=== PATIENT | female | born 1990 | race American Indian/Alaskan Native ===

== ENCOUNTER 2020-02-27 19:22 | Emergency (ER) | payer BC ==
--- NOTE | 2020-02-27 19:34 | Emergency Department Report ---
Blank Doc - Documentation Documentation: 29-year-old female that presents with abscess to the buttock area. This initial assessment/diagnostic orders/clinical plan/treatment(s) is/are subject to change based on patient's health status, clinical progression and re- assessment by fellow clinical providers in the ED. Further treatment and workup at subsequent clinical providers discretion. Patient/guardians urged not to elope from the ED as their condition may be serious if not clinically assessed and managed. Initial orders include: 1- Patient sent to [facility] for further evaluation and treatment
[2020-02-27 19:38] VITALS: BP 147/100
[2020-02-28] MEDS ORDERED: cephALEXin 500 MG CAP PO ONE (02:09)
[2020-02-28] MEDS ORDERED: traMADol 50 MG TAB PO ONE (02:09)
--- NOTE | 2020-02-28 02:24 | Emergency Department Report ---
- General Chief complaint: Skin/Abscess/Foreign Body Stated complaint: SWOLLEN LUMP ON TAILBONE Time Seen by Provider: 02/27/20 19:34 Source: patient Mode of arrival: Ambulatory Limitations: No Limitations - History of Present Illness Initial comments: Patient presents for abscess of buttocks x3 days. States pain with sitting and soreness. Pain rated at 4/10. Pain is exacerbated by again sitting pain is relieved by offloading. There is no fever, chills there is no bowel movement difficulties no abdominal pain. Patient is with current menses however no dysuria frequency or urgency. Patient denies other concerns. - Related Data Previous Rx's Medication Instructions Recorded Last Taken Type Ferrous Sulfate [Feosol 325 MG tab] 325 mg PO BID #120 tablet 09/12/13 Unknown Rx Albuterol Mdi (or & Nicu Only) 2 puff IH QID PRN #1 inhalation 02/22/14 Unknown Rx [ProAir HFA Inhaler] Bacitracin 1 gm TP BID #30 gm 03/05/14 Unknown Rx HYDROcodone/APAP 5-325 [[place] 1 - 2 each PO Q6HR PRN #12 tablet 03/05/14 Unknown Rx 5/325] Ibuprofen [Motrin 800 MG tab] 800 mg PO TID PRN #20 tablet 03/05/14 Unknown Rx cephALEXin [Keflex] 500 mg PO TID 7 Days #21 cap 02/28/20 Unknown Rx traMADoL [Ultram] 50 mg PO Q6HR PRN #12 tablet 02/28/20 Unknown Rx Allergies Allergy/AdvReac Type Severity Reaction Status Date / Time No Known Allergies Allergy Unverified 09/11/13 06:32 Abscess Boil HPI - HPI Chief Complaint: Skin/Abscess/Foreign Body Stated Complaint: SWOLLEN LUMP ON TAILBONE Time Seen by Provider: 02/27/20 19:34 Home Medications: Previous Rx's Medication Instructions Recorded Last Taken Type Ferrous Sulfate [Feosol 325 MG tab] 325 mg PO BID #120 tablet 09/12/13 Unknown Rx Albuterol Mdi (or & Nicu Only) 2 puff IH QID PRN #1 inhalation 02/22/14 Unknown Rx [ProAir HFA Inhaler] Bacitracin 1 gm TP BID #30 gm 03/05/14 Unknown Rx HYDROcodone/APAP 5-325 [[place] 1 - 2 each PO Q6HR PRN #12 tablet 03/05/14 Unknown Rx 5/325] Ibuprofen [Motrin 800 MG tab] 800 mg PO TID PRN #20 tablet 03/05/14 Unknown Rx cephALEXin [Keflex] 500 mg PO TID 7 Days #21 cap 02/28/20 Unknown Rx traMADoL [Ultram] 50 mg PO Q6HR PRN #12 tablet 02/28/20 Unknown Rx Allergies/Adverse Reactions: Allergies Allergy/AdvReac Type Severity Reaction Status Date / Time No Known Allergies Allergy Unverified 09/11/13 06:32 ED Review of Systems ROS: Stated complaint: SWOLLEN LUMP ON TAILBONE Other details as noted in HPI Constitutional: denies: chills, fever Eyes: denies: eye pain, eye discharge, vision change ENT: denies: ear pain, throat pain Respiratory: denies: cough, shortness of breath, wheezing Cardiovascular: denies: chest pain, palpitations Endocrine: no symptoms reported Gastrointestinal: denies: abdominal pain, nausea, diarrhea Genitourinary: denies: urgency, dysuria, discharge Musculoskeletal: denies: back pain, joint swelling, arthralgia Skin: other (abscess buttocks ) Neurological: denies: headache, weakness, paresthesias Psychiatric: denies: anxiety, depression Hematological/Lymphatic: denies: easy bleeding, easy bruising ED Past Medical Hx - Past Medical History Hx Hypertension: No Hx Congestive Heart Failure: No Hx Diabetes: No Hx Deep Vein Thrombosis: No Hx Renal Disease: No Hx Sickle Cell Disease: No Hx Seizures: No Hx Asthma: Yes (last attack 1999) Hx COPD: No Hx HIV: No - Social History Smoking Status: Never Smoker Substance Use Type: None - Medications Home Medications: Home Medications Medication Instructions Recorded Confirmed Last Taken Type Ferrous Sulfate [Feosol 325 MG tab] 325 mg PO BID #120 tablet 09/12/13 03/05/14 Unknown Rx Albuterol Mdi (or & Nicu Only) 2 puff IH QID PRN #1 inhalation 02/22/14 03/05/14 Unknown Rx [ProAir HFA Inhaler] Bacitracin 1 gm TP BID #30 gm 03/05/14 Unknown Rx HYDROcodone/APAP 5-325 [[place] 1 - 2 each PO Q6HR PRN #12 tablet 03/05/14 Unknown Rx 5/325] Ibuprofen [Motrin 800 MG tab] 800 mg PO TID PRN #20 tablet 03/05/14 Unknown Rx cephALEXin [Keflex] 500 mg PO TID 7 Days #21 cap 02/28/20 Unknown Rx traMADoL [Ultram] 50 mg PO Q6HR PRN #12 tablet 02/28/20 Unknown Rx ED Physical Exam - General Limitations: No Limitations General appearance: alert, in no apparent distress - Head Head exam: Present: atraumatic, normocephalic - Eye Eye exam: Present: normal appearance - ENT ENT exam: Present: mucous membranes moist - Neck Neck exam: Present: normal inspection - Respiratory Respiratory exam: Present: normal lung sounds bilaterally. Absent: respiratory distress - Cardiovascular Cardiovascular Exam: Present: regular rate, normal rhythm. Absent: systolic murmur, diastolic murmur, rubs, gallop - GI/Abdominal GI/Abdominal exam: Present: soft, normal bowel sounds - Rectal Rectal exam: Present: deferred - Extremities Exam Extremities exam: Present: normal inspection - Back Exam Back exam: Present: normal inspection, full ROM. Absent: tenderness, CVA tenderness (R), CVA tenderness (L), vertebral tenderness - Neurological Exam Neurological exam: Present: alert, oriented X3, normal gait - Psychiatric Psychiatric exam: Present: normal affect - Skin Skin exam: Present: warm, dry, intact, normal color, erythema, other (abscess buttocks interagluteal cleft , 2x3 cm erythema , flucutant, pain to touch , no fever ). Absent: rash ED Course Vital Signs 02/27/20 19:34 Temperature 98.7 F Pulse Rate 98 H Respiratory 18 Rate Blood Pressure 147/100 O2 Sat by Pulse 99 Oximetry - I & D Buttocks Type of Procedure: Simple Site: buttocks Blade Size: 11 I & D Procedure: betadine prep Progress: Patient's intergluteal fold abscess 2 x 3 cm erythema fluctuant pain to touch, site cleaned with Betadine solution, anesthesia with 1% lidocaine x3 cc, incision with 11 blade scalpel x1. Loculations broken up with six-inch blunt forceps. Moderate purulent and bloody drainage noted., Wound irrigated with 60 cc sterile saline. Sterile dressings applied. All bleeding is controlled. Patient tolerated procedure with minimal distress. Patient given wound care instructions and verbalized understanding of same. This includes follow-up with PCP in 2 to 3 days for wound check, warm water soaks as directed. Patient will be DC'd home with antibiotics and as needed pain medication. ED Medical Decision Making - Medical Decision Making Abscess buttocks , see procedure note, all bleeding is controlled, sterile dressing applied, pt tolerated procedure with minimal distress, pt dc'd to home in stable condition at this time. Critical care attestation.: If time is entered above; I have spent that time in minutes in the direct care of this critically ill patient, excluding procedure time. ED Disposition Clinical Impression: Abscess of buttock Disposition: DC-01 TO HOME OR SELFCARE Is pt being admited?: No Does the pt Need Aspirin: No Condition: Stable Instructions: Abscess (ED) Prescriptions: cephALEXin [Keflex] 500 mg PO TID 7 Days #21 cap traMADoL [Ultram] 50 mg PO Q6HR PRN #12 tablet PRN Reason: Pain Referrals: ASIM STANFORD MD [Staff Physician] - 3-5 Days Forms: Work/School Release Form(ED) Time of Disposition: 02:29
== END 2020-02-28 02:47 | disposition home or self-care (01) ==
LOC: ED 19:22
DX: L02.31 Cutaneous abscess of buttock (principal)
CPT/HCPCS: 99282